=== PATIENT | male | born 1990 | race Caucasian/White ===

== ENCOUNTER 2017-10-08 23:11 | Emergency (ER) | payer OTHER ==
[~2017-10-08] VITALS: Ht 193 cm; Wt 81.7 kg
[~2017-10-08 23:11] MED LIST: VISTARIL 25 MG25 M1 PO; XANAX 0.5 MG0.5 M1 PO
[2017-10-08] MEDS ORDERED: MEDROLDOSEPACK PO (23:39)
[2017-10-08 23:58] VITALS: BP 119/79
== END 2017-10-08 23:59 | disposition home or self-care (01) ==
LOC: M.ERS 23:11
DX: J02.9 Acute pharyngitis, unspecified (principal); R50.9 Fever, unspecified; F41.9 Anxiety disorder, unspecified

== ENCOUNTER 2019-09-14 17:53 | Emergency (ER) | payer OTHER ==
[~2019-09-14] VITALS: Ht 190.5 cm; Wt 81.7 kg
[~2019-09-14 17:53] MED LIST changes: +MEDROLDOSEPACK PO
[2019-09-14 18:39] LABS: ABSOLUTE LYMPHOCYTES 2.5 thou/uL (0.8-5.3); ABSOLUTE MONOCYTES 0.7 thou/uL (0.0-1.2); ABSOLUTE NEUTROPHILS 7.5 thou/uL (1.6-8.1); BASOPHILS 0.4 %; EOSINOPHILS 0.5 %; HEMATOCRIT 40.8 % (42.0-52.0); HEMOGLOBIN 14.3 gm/dL (14.0-18.0); LYMPHOCYTES 23.3 %; MCH 32.2 pg (26.0-34.0); MONOCYTES 6.1 %; MPV 8.2 fl. (7.2-11.1); NUCLEATED RBCS 0 /100WBC; PLATELET COUNT* 203 thou/uL (150-400); POLYS 69.7 %; RBC 4.44 mil/uL (4.50-6.00); RDW-CV 13.3 % (10.5-14.5); WBC 10.8 thou/uL (4.0-11.0)
[2019-09-14 18:54] LABS: CALCIUM 8.4 mg/dL (8.5-10.1); CREATININE 0.9 mg/dL (0.6-1.3); POTASSIUM 3.8 mmol/L (3.5-5.1)
[2019-09-14 18:56] LABS: URINE BILIRUBIN NEGATIVE (Negative); URINE BLOOD NEGATIVE (Negative); URINE CLARITY CLEAR; URINE COLOR YELLOW; URINE GLUCOSE-RANDOM NEGATIVE (Negative); URINE KETONES NEGATIVE (Negative); URINE LEUKOCYTES-REFLEX NEGATIVE (Negative); URINE NITRITE-REFLEX NEGATIVE (Negative); URINE PROTEIN NEGATIVE (Negative); URINE SPECIFIC GRAVITY <= 1.005 (1.005-1.030); URINE UROBILINOGEN 0.2 E.U./dl (0.2-1.0)
[2019-09-14 18:58] LABS: ALBUMIN 4.4 g/dL (3.4-5.0); TOTAL PROTEIN 7.1 g/dL (6.4-8.2)
[2019-09-14] MEDS ORDERED: PEPCID20 MG PO (19:22)
[2019-09-14 19:44] VITALS: BP 128/83
== END 2019-09-14 19:45 | disposition home or self-care (01) ==
LOC: M.ERS 17:53
PROVIDERS: Physician Assistant
DX: R10.84 Generalized abdominal pain (principal); F41.9 Anxiety disorder, unspecified

== ENCOUNTER 2019-10-31 02:08 | Emergency (ER) | payer OTHER ==
[~2019-10-31] VITALS: Ht 190.5 cm; Wt 81.7 kg
[~2019-10-31 02:08] MED LIST changes: +PEPCID20 MG PO
[2019-10-31 02:54] LABS: ABSOLUTE EOSINOPHILS 0.1 thou/uL (0.0-0.7); ABSOLUTE MONOCYTES 0.7 thou/uL (0.0-1.2); ABSOLUTE NEUTROPHILS 8.9 thou/uL (1.6-8.1); BASOPHILS 0.3 %; EOSINOPHILS 0.4 %; HEMATOCRIT 40.1 % (42.0-52.0); LYMPHOCYTES 17.3 %; MCH 32.1 pg (26.0-34.0); MCHC 34.9 g/dL (28.0-37.0); MONOCYTES 6.1 %; MPV 8.4 fl. (7.2-11.1); NUCLEATED RBCS 0 /100WBC; PLATELET COUNT* 234 thou/uL (150-400); POLYS 75.9 %; RBC 4.35 mil/uL (4.50-6.00); RDW-CV 12.7 % (10.5-14.5); WBC 11.7 thou/uL (4.0-11.0)
[2019-10-31 03:02] LABS: CALCIUM 8.6 mg/dL (8.5-10.1); CREATININE 0.8 mg/dL (0.6-1.3); POTASSIUM 3.8 mmol/L (3.5-5.1)
[2019-10-31 03:07] LABS: ALBUMIN 4.3 g/dL (3.4-5.0); TOTAL BILIRUBIN 0.7 mg/dL (<0.1-1.0); TOTAL PROTEIN 7.2 g/dL (6.4-8.2)
[2019-10-31] MEDS ORDERED: PROTONIX40 MG PO (05:58)
[2019-10-31] MEDS ORDERED: CARAFATE 1 GM TA1 GM PO (05:58)
[2019-10-31 06:05] VITALS: BP 127/73
== END 2019-10-31 06:06 | disposition home or self-care (01) ==
LOC: M.ERS 02:08
PROVIDERS: Emergency Medicine
DX: K29.70 Gastritis, unspecified, without bleeding (principal)

== ENCOUNTER → 2019-12-06 | Outpatient (CLI) | payer OTHER ==
[~2019-12-06] MED LIST changes: +CARAFATE 1 GM TA1 GM PO; +PROTONIX40 MG PO
== END ==
LOC: M.NUC 12-03 13:00
PROVIDERS: ATTEND Internal Medicine Gastroenterology
DX: R10.13 Epigastric pain (principal)

== ENCOUNTER 2020-08-20 17:57 | Emergency (ER) | payer OTHER ==
[~2020-08-20] VITALS: Ht 190.5 cm; Wt 81.7 kg
[2020-08-20 19:08] VITALS: BP 138/73
== END 2020-08-20 19:08 | disposition home or self-care (01) ==
LOC: M.ERS 17:57
DX: S93.692A Other sprain of left foot, initial encounter (principal); Z79.899 Other long term (current) drug therapy; X50.1XXA Overexertion from prolonged static or awkward postures, initial encounter; Y93.89 Activity, other specified; Y92.69 Other specified industrial and construction area as the place of occurrence of the external cause; Y99.9 Unspecified external cause status